=== PATIENT | female | born 1995 | race Caucasian/White ===

== ENCOUNTER 2017-04-20 11:00 | Emergency (ER) | payer OTHER ==
[~2017-04-20] VITALS: Ht 170.2 cm; Wt 54.5 kg
[2017-04-20 11:34] VITALS: BP 125/78; PULSE 63; TEMP 98.1
== END 2017-04-20 11:37 | disposition home or self-care (01) ==
LOC: COL.ER 11:00
DX: S01.81XA Laceration without foreign body of other part of head, initial encounter (principal); W22.8XXA Striking against or struck by other objects, initial encounter; Y92.410 Unspecified street and highway as the place of occurrence of the external cause